=== PATIENT | female | born 2000 | race American Indian/Alaskan Native ===

== ENCOUNTER 2019-07-16 09:57 | Emergency (ER) | payer MEDICAID, OTHER ==
--- NOTE | 2019-07-16 13:09 | Emergency Department Report ---
ED Female HPI - General Chief complaint: Urogenital-Female Stated complaint: PAINFUL URINATION W/STRONG ODOR Time Seen by Provider: 07/16/19 13:01 Source: patient Mode of arrival: Ambulatory Limitations: No Limitations - History of Present Illness Initial comments: 19-year-old -[place] female presents with complaints of burning urination, urinary frequency, and lower pelvic pain x4 days. She denies any vaginal discharge and states she had negative STI testing performed 2 weeks ago. Patient also denies any fever, hematuria, back pain, or history of pyelonephritis. She rates her current pain as a 9/10 in severity and states pain worsens with urination. -: Sudden - Related Data Previous Rx's Medication Instructions Recorded Last Taken Type HYDROcodone/APAP 5-325 [[place] 1 each PO Q6HR PRN #30 tablet 12/04/15 Unknown Rx 5/325] Phenazopyridine [Pyridium] 100 - 200 mg PO TID PRN #20 tab 07/16/19 Unknown Rx Sulfamethoxazole/Trimethoprim 1 each PO BID 5 Days #10 tablet 07/16/19 Unknown Rx [Bactrim DS TAB] Allergies Allergy/AdvReac Type Severity Reaction Status Date / Time diphenhydramine HCl AdvReac Rash Verified 12/04/15 07:26 [From Benadryl] ED Review of Systems ROS: Stated complaint: PAINFUL URINATION W/STRONG ODOR Other details as noted in HPI Constitutional: denies: chills, fever, malaise Genitourinary: urgency, dysuria, frequency. denies: hematuria, discharge, abnormal menses Musculoskeletal: denies: back pain Skin: denies: rash, lesions Hematological/Lymphatic: denies: swollen glands ED Past Medical Hx - Past Medical History Previous Medical History?: No Hx Hypertension: No Hx Heart Attack/AMI: No Hx Liver Disease: No Hx Renal Disease: No Hx Seizures: No Hx Asthma: No Hx HIV: No - Surgical History Past Surgical History?: No - Social History Smoking Status: Never Smoker Substance Use Type: None - Medications Home Medications: Home Medications Medication Instructions Recorded Confirmed Last Taken Type HYDROcodone/APAP 5-325 [[place] 1 each PO Q6HR PRN #30 tablet 12/04/15 Unknown Rx 5/325] Phenazopyridine [Pyridium] 100 - 200 mg PO TID PRN #20 tab 07/16/19 Unknown Rx Sulfamethoxazole/Trimethoprim 1 each PO BID 5 Days #10 tablet 07/16/19 Unknown Rx [Bactrim DS TAB] ED Physical Exam - General Limitations: No Limitations General appearance: alert - Head Head exam: Present: atraumatic, normocephalic - Eye Eye exam: Present: normal appearance - ENT ENT exam: Present: mucous membranes moist - Neck Neck exam: Present: normal inspection - Respiratory Respiratory exam: Present: normal lung sounds bilaterally. Absent: respiratory distress - Cardiovascular Cardiovascular Exam: Present: regular rate, normal rhythm - GI/Abdominal GI/Abdominal exam: Present: soft, tenderness (Minimal suprapubic), normal bowel sounds. Absent: distended, guarding, rebound, rigid - Extremities Exam Extremities exam: Present: normal inspection - Back Exam Back exam: Present: normal inspection. Absent: CVA tenderness (R), CVA tenderness (L) - Neurological Exam Neurological exam: Present: alert, oriented X3 - Psychiatric Psychiatric exam: Present: normal affect, normal mood - Skin Skin exam: Present: warm, dry, intact, normal color. Absent: rash ED Course Vital Signs 07/16/19 10:16 Temperature 98.9 F Pulse Rate 88 Respiratory 16 Rate Blood Pressure 113/71 [Left] O2 Sat by Pulse 98 Oximetry ED Medical Decision Making - Lab Data Lab Results 07/16/19 Range/Units 13:03 Urine Color Yellow (Yellow) Urine Turbidity Slightly-cloudy (Clear) Urine pH 5.0 (5.0-7.0) Ur Specific [place] 1.029 (1.003-1.030) Urine Protein 100 mg/dl (Negative) mg/dL Urine Glucose (UA) Neg (Negative) mg/dL Urine Ketones Neg (Negative) mg/dL Urine Blood Sm (Negative) Urine Nitrite Pos (Negative) Urine Bilirubin Neg (Negative) Urine Urobilinogen 2.0 (<2.0) mg/dL Ur Leukocyte Esterase Tr (Negative) Urine WBC (Auto) 67.0 H (0.0-6.0) /HPF Urine RBC (Auto) 9.0 (0.0-6.0) /HPF U Epithel Cells (Auto) 5.0 (0-13.0) /HPF Urine Bacteria (Auto) 3+ (Negative) /HPF Urine Mucus 3+ /HPF Urine HCG, Qual Negative (Negative) - Medical Decision Making Patient here with dysuria, urinary frequency, and pelvic pain. She denies any vaginal discharge or dyspareunia. UA shows WBCs = 67. Patient also states recent negative STI testing. Patient's vitals are normal and she is stable for discharge home with treatment for UTI. Bactrim prescription given. Recommend follow-up with primary care provider in 5 to 7 days. Discussed return precautions in detail with patient who verbalizes understanding. Critical care attestation.: If time is entered above; I have spent that time in minutes in the direct care of this critically ill patient, excluding procedure time. ED Disposition Clinical Impression: UTI (urinary tract infection) Qualifiers: Urinary tract infection type: acute cystitis Hematuria presence: without hematuria Qualified Code(s): N30.00 - Acute cystitis without hematuria Disposition: TO HOME OR SELFCARE Is pt being admited?: No Condition: Stable Instructions: Urinary Tract Infection in Women (ED) Prescriptions: Sulfamethoxazole/Trimethoprim [Bactrim DS TAB] 1 each PO BID 5 Days #10 tablet Phenazopyridine [Pyridium] 100 - 200 mg PO TID PRN #20 tab PRN Reason: pain Referrals: ASAEL AGARWAL MD [Primary Care Provider] - 3-5 Days
[2019-07-16 13:58] LABS: Bacteria,Urine 3+ /HPF (Negative); Bilirubin,Urine NEG (Negative); Blood,Urine SM (Negative); Color,Urine Yellow (Yellow); Mucus,Urine 3+ /HPF
[2019-07-16 14:00] LABS: HCG Qualitative,Urine Negative (Negative)
[2019-07-16] MEDS ORDERED: IBUPROFEN 800 MG TAB PO ONE (14:11)
[2019-07-16 14:28] VITALS: BP 118/74
== END 2019-07-16 14:27 | disposition home or self-care (01) ==
LOC: ED 09:57
DX: N39.0 Urinary tract infection, site not specified (principal); Z88.8 Allergy status to other drugs, medicaments and biological substances; Z79.899 Other long term (current) drug therapy
CPT/HCPCS: 81001; 81025; 87076; 87086; 87186

== ENCOUNTER 2019-11-25 20:19 | Emergency (ER) | payer OTHER ==
[2019-11-25 21:01] LABS: Bacteria,Urine 1+ /HPF (Negative); Bilirubin,Urine NEG (Negative); Blood,Urine MOD (Negative); Color,Urine Yellow (Yellow); HCG Qualitative,Urine Negative (Negative); Mucus,Urine 2+ /HPF; Urobilinogen,Urine < 2.0 mg/dL (<2.0)
[2019-11-26] MEDS ORDERED: IBUPROFEN 600 MG TAB PO ONE ×2 (00:33→00:43)
[2019-11-26] MEDS ORDERED: cephALEXin 500 MG CAP PO ONE (00:33)
[2019-11-26] MEDS ORDERED: PHENAZOPYRIDINE 200 MG TAB PO ONE ×2 (00:33→00:42)
--- NOTE | 2019-11-26 00:37 | Emergency Department Report ---
ED Female HPI - General Chief complaint: Urogenital-Female Stated complaint: UTI Source: patient Mode of arrival: Ambulatory Limitations: No Limitations - History of Present Illness Initial comments: Patient is a nulliparous 19-year-old -[place] Citizen female with past medical history of asthma who presents to the ED with complaint of acute onset persistent dysuria, urinary frequency and urgency, mild low back pain and suprapubic pressure for the last 2 days. Patient also states that her urine has had malodorous smell. Patient states that she has had these symptoms before and has always been diagnosed with urinary tract infection and suspected the same this time. Patient denies vaginal bleeding, vaginal discharge, dizziness, syncope, chest pain, shortness of breath, abdominal pain, nausea and vomiting, fever and chills. MD Complaint: dysuria, other (low back pain; urinary urgency and frequency) -: Sudden, days(s) (2) Location: suprapubic (pressure), other (vaginal) Radiation: other (lower back) Severity: moderate Severity scale (0 -10): 4 Quality: dull, burning, aching Consistency: constant Improves with: none Worsens with: urination Are you Now?: No Last Menstrual Period: 11/08/19 EDC: 08/14/20 Associated Symptoms: denies other symptoms, abdominal pain (suprapubic pressure), dysuria. denies: vaginal discharge, vaginal bleeding, nausea/vomiting, fever/chills, headaches, loss of appetite, hematuria, rash, seizure, shortness of breath, syncope, weakness, other - Related Data Sexually active: Yes : 0 Para: 0 A: 0 Previous Rx's Medication Instructions Recorded Last Taken Type HYDROcodone/APAP 5-325 [[place] 1 each PO Q6HR PRN #30 tablet 12/04/15 Unknown Rx 5/325] Phenazopyridine [Pyridium] 100 - 200 mg PO TID PRN #20 tab 07/16/19 Unknown Rx Sulfamethoxazole/Trimethoprim 1 each PO BID 5 Days #10 tablet 07/16/19 Unknown Rx [Bactrim DS TAB] Fluconazole (Nf) [Diflucan TAB] 150 mg PO ONCE #2 tablet 11/26/19 Unknown Rx Ibuprofen [Motrin] 600 mg PO Q8H PRN #20 tablet 11/26/19 Unknown Rx Phenazopyridine [Pyridium] 200 mg PO TID #21 tab 11/26/19 Unknown Rx cephALEXin [Keflex] 500 mg PO Q8HR #30 cap 11/26/19 Unknown Rx Allergies Allergy/AdvReac Type Severity Reaction Status Date / Time diphenhydramine HCl AdvReac Rash Verified 12/04/15 07:26 [From Benadryl] ED Review of Systems ROS: Stated complaint: UTI Other details as noted in HPI Constitutional: denies: chills, fever Eyes: denies: eye pain, eye discharge, vision change ENT: denies: ear pain, throat pain Respiratory: denies: cough, shortness of breath, wheezing Cardiovascular: denies: chest pain, palpitations Endocrine: no symptoms reported Gastrointestinal: abdominal pain (Suprapubic pressure). denies: nausea, vomiting, diarrhea Genitourinary: urgency, dysuria, frequency. denies: discharge Musculoskeletal: back pain (Mild low back pain). denies: joint swelling, arthralgia Skin: denies: rash, lesions Neurological: denies: headache, weakness, paresthesias Psychiatric: denies: anxiety, depression Hematological/Lymphatic: denies: easy bleeding, easy bruising ED Past Medical Hx - Past Medical History Previous Medical History?: Yes Hx Hypertension: No Hx Heart Attack/AMI: No Hx Liver Disease: No Hx Renal Disease: No Hx Seizures: No Hx Asthma: Yes Hx HIV: No - Surgical History Past Surgical History?: Yes Additional Surgical History: Bilateral breast Lumpectomy - Social History Smoking Status: Never Smoker Substance Use Type: None - Medications Home Medications: Home Medications Medication Instructions Recorded Confirmed Last Taken Type HYDROcodone/APAP 5-325 [[place] 1 each PO Q6HR PRN #30 tablet 12/04/15 Unknown Rx 5/325] Phenazopyridine [Pyridium] 100 - 200 mg PO TID PRN #20 tab 07/16/19 Unknown Rx Sulfamethoxazole/Trimethoprim 1 each PO BID 5 Days #10 tablet 07/16/19 Unknown Rx [Bactrim DS TAB] Fluconazole (Nf) [Diflucan TAB] 150 mg PO ONCE #2 tablet 11/26/19 Unknown Rx Ibuprofen [Motrin] 600 mg PO Q8H PRN #20 tablet 11/26/19 Unknown Rx Phenazopyridine [Pyridium] 200 mg PO TID #21 tab 11/26/19 Unknown Rx cephALEXin [Keflex] 500 mg PO Q8HR #30 cap 11/26/19 Unknown Rx ED Physical Exam - General Limitations: No Limitations General appearance: alert, in no apparent distress - Head Head exam: Present: atraumatic, normocephalic, normal inspection - Eye Eye exam: Present: normal appearance, PERRL, EOMI Pupils: Present: normal accommodation - ENT ENT exam: Present: normal exam, normal orophraynx, mucous membranes moist, TM's normal bilaterally, normal external ear exam - Neck Neck exam: Present: normal inspection, full ROM - Respiratory Respiratory exam: Present: normal lung sounds bilaterally. Absent: respiratory distress, wheezes, rales, rhonchi, chest wall tenderness, accessory muscle use, decreased breath sounds - Cardiovascular Cardiovascular Exam: Present: regular rate, normal rhythm, normal heart sounds. Absent: systolic murmur, diastolic murmur, rubs, gallop - GI/Abdominal GI/Abdominal exam: Present: soft, normal bowel sounds. Absent: tenderness, gua rding, rebound, hyperactive bowel sounds, hypoactive bowel sounds - Bi-manual exam: Present: other (Pelvic exam deferred) - Extremities Exam Extremities exam: Present: normal inspection, full ROM, normal capillary refill. Absent: tenderness - Back Exam Back exam: Present: normal inspection, full ROM. Absent: tenderness, CVA tenderness (R), muscle spasm, paraspinal tenderness - Neurological Exam Neurological exam: Present: alert, oriented X3, CN II-XII intact, normal gait, reflexes normal - Psychiatric Psychiatric exam: Present: normal affect, normal mood - Skin Skin exam: Present: warm, dry, intact, normal color. Absent: rash ED Course Vital Signs 11/25/19 11/26/19 11/26/19 20:24 00:50 00:55 Temperature 98.3 F 98.3 F Pulse Rate 79 76 Respiratory 20 18 18 Rate Blood Pressure 116/80 Blood Pressure 120/74 [Left] O2 Sat by Pulse 98 100 Oximetry ED Medical Decision Making - Medical Decision Making This is a nulliparous 19-year-old -[place] Citizen female with past medical history of asthma who presents to the ED with complaint of acute onset persistent dysuria, urinary frequency and urgency, mild low back pain and suprapubic pressure for the last 2 days. Patient also states that her urine has had malodorous smell. Patient states that she has had these symptoms before and has always been diagnosed with urinary tract infection and suspected the same this time. In the ED, patient is alert and oriented x3 and is not in distress. Urinalysis shows significant urinary tract infection with budding yeast. Patient was treated for pain in the ED and also given initial oral antibiotics. Patient was discharged home on oral antibiotics and advised to follow-up with her primary care physician in 7 to 10 days for reevaluation or return to the ED immediately if symptoms get worse. - Differential Diagnosis UTI; Bacterial vaginosis; Vaginitis; muscle spasm; bladder spasm Critical care attestation.: If time is entered above; I have spent that time in minutes in the direct care of this critically ill patient, excluding procedure time. ED Disposition Clinical Impression: Acute urinary tract infection, Dysuria, Candidal vaginitis Disposition: TO HOME OR SELFCARE Is pt being admited?: No Does the pt Need Aspirin: No Condition: Stable Instructions: Urinary Tract Infection in Women (ED), Vaginitis (ED) Additional Instructions: Take medication with food, drink plenty of fluids and follow-up with your primary care physician in 5 to 7 days for reevaluation. Return to the ED immediately if symptoms get worse. Prescriptions: Fluconazole (Nf) [Diflucan TAB] 150 mg PO ONCE #2 tablet cephALEXin [Keflex] 500 mg PO Q8HR #30 cap Ibuprofen [Motrin] 600 mg PO Q8H PRN #20 tablet PRN Reason: Pain Phenazopyridine [Pyridium] 200 mg PO TID #21 tab Referrals: RUTHY STRANGE MD [Primary Care Provider] - 3-5 Days Time of Disposition: 00:35 Print Language: AMERICAN
[2019-11-26] MEDS ORDERED: cephALEXin 500 MG CAP ONE (00:42)
[2019-11-26 01:19] VITALS: BP 120/74
== END 2019-11-26 00:55 | disposition home or self-care (01) ==
LOC: ED 20:19
DX: N39.0 Urinary tract infection, site not specified (principal); R30.0 Dysuria; B37.3 Candidiasis of vulva and vagina; J45.909 Unspecified asthma, uncomplicated; Z98.890 Other specified postprocedural states; Z79.1 Long term (current) use of non-steroidal anti-inflammatories (NSAID); Z79.899 Other long term (current) drug therapy; Z88.8 Allergy status to other drugs, medicaments and biological substances
CPT/HCPCS: 81001; 81025; 87076; 87086; 87186

== ENCOUNTER 2020-01-08 05:51 | Emergency (ER) | payer SELFPAY ==
[2020-01-08 06:03] VITALS: BP 112/60
[2020-01-08 07:28] LABS: HCG Qualitative,Urine Negative (Negative)
--- NOTE | 2020-01-08 08:15 | Emergency Department Report ---
Chief Complaint: Urogenital-Female Stated Complaint: YEAST INFECTION Time Seen by Provider: 01/08/20 08:01 - HPI History of Present Illness: Patient is a 19-year-old female presents emergency room with complaints of a "yeast infection" that began 2 days ago. She states that she has sick, white, clumpy discharge. She denies any coloration to the discharge. She denies any odor to the discharge. She states that she does have some mild itching. She denies any nausea, vomiting, diarrhea, fever, pelvic pain, abdominal pain, back pain, dysuria, urinary frequency, urinary urgency, dark urine. She states that she does not have any symptoms at all except for the white vaginal discharge. She has not tried anything for her symptoms. She states that she does have an ORTHOPAEDIC NURSE that she can follow-up with and does get regular Pap smears. Patient states that every night she uses Vaseline in the pubic region which is most likely creating a moist environment for yeast to grow. Advised patient to please stop using the Vaseline and to always use non-scented soaps and detergents. Vitals are normal Urine was ordered prior to my examination and is negative On exam: Non toxic appearing, no acute distress atraumatic, normocephalic normal appearance of the eyes, PERRL, EOMI, no periorbital edema or ecchymosis moist mucus membranes regular heart rate and rhythm, no gallops, no rubs, no murmurs breath sounds are clear bilaterally, no w/r/r No abdominal tenderness on exam, no guarding, no rebound, no rigidity, normal bowel sounds A&O x4, no focal neuro deficit skin is warm, dry, intact Patient is presenting with symptoms most likely consistent with yeast infection she denies any nausea, vomiting, diarrhea, fever, pelvic pain, abdominal pain, back pain, dysuria, urinary frequency, urinary urgency, dark urine. Discussed [id number] treatment with patient Patient given multiple resources for follow-up, discussed the importance of follow-up Discussed strict return precautions with patient Advised patient Please use Monistat 7-day [id number]. Please do not use Vaseline. Continue to use a non-scented soap and non-scented detergent. Wear loose fitting clothes. If you are outside sweating, please make sure to shower off. please follow-up with your primary care doctor. Please follow-up with ORTHOPAEDIC NURSE. Return to emergency room for any new or worsening symptoms including but not limited to abdominal pain, pelvic pain, burning with urination, nausea, vomiting, fever, etc. Medical screening performed and there is no threat to life or limb at this time - Exam Vital Signs: Vital Signs 01/08/20 05:57 Temperature 98.3 F Pulse Rate 83 Respiratory 20 Rate Blood Pressure 112/60 O2 Sat by Pulse 99 Oximetry MSE screening note: Focused history and physical exam performed. ED Disposition for MSE Clinical Impression: Yeast vaginitis Disposition: MED SCREENING EXAM-LEFT Is pt being admited?: No Does the pt Need Aspirin: No Condition: Stable Instructions: Vulvovaginal Candidiasis (ED) Additional Instructions: Please use Monistat 7-day [id number]. Please do not use Vaseline. Continue to use a non-scented soap and non-scented detergent. Wear loose fitting clothes. If you are outside sweating, please make sure to shower off. please follow-up with your primary care doctor. Please follow-up with ORTHOPAEDIC NURSE. Return to emergency room for any new or worsening symptoms including but not limited to abdominal pain, pelvic pain, burning with urination, nausea, vomiting, fever, etc. Referrals: PRIMARY CARE,MD [Primary Care Provider] - 2-3 Days your, regulatory compliance engineer [Other] - 2-3 Days Time of Disposition: 08:13 Print Language: AMHARIC
== END 2020-01-08 08:20 | disposition left against medical advice (07) ==
LOC: ED 05:51
DX: N76.0 Acute vaginitis (principal); Z53.21 Procedure and treatment not carried out due to patient leaving prior to being seen by health care provider
CPT/HCPCS: 81025